=== PATIENT | female | born 1980 | race Caucasian/White ===

== ENCOUNTER 2018-09-22 16:14 | Emergency (ER) | payer BC ==
[2018-09-22 16:24] VITALS: BP 103/67; PULSE 64; TEMP 97.6; BMI 17.6
--- NOTE | 2018-09-22 17:29 | PDOC ---
Documentation entered by Geovanna Cook SCRIBE, acting as scribe for Sim Skaggs MD. iSm Skaggs MD: This documentation has been prepared by the Joey garcia Aiswarya, SCRIBE, under my direction and personally reviewed by me in its entirety. I confirm that the documentation accurately reflects all work, treatment, procedures, and medical decision making performed by me. History of Present Illness - General Chief Complaint: Laceration Stated Complaint: LEFT HAND LACERATION Time Seen by Provider: 09/22/18 16:20 History Source: Patient Exam Limitations: No Limitations - History of Present Illness Initial Comments: 09/22/18 17:21 The patient is a 38 year old female, with no significant PMH, who presents to the emergency department with a left hand laceration that occurred today. The patient states she was taking the pit of a avocado when she accidently slit her left hand between the 1st and 2nd digit with the knife. She reports mild bleeding and pain. The patient last tetanus shot was January with her . Denies any numbness/weakness/tingling. Denies any other deformity. Allergies: NKDA Past surgical history: None reported Social history: None reported PCP: None reported Past History - Past Medical History Allergies/Adverse Reactions: Allergies Allergy/AdvReac Type Severity Reaction Status Date / Time No Known Allergies Allergy Verified 09/22/18 16:15 Home Medications: Ambulatory Orders Control 1 tab PO DAILY 09/22/18 Ranitidine [Zantac -] 150 mg PO DAILY 09/22/18 Sertraline HCl [Zoloft] 150 mg PO DAILY 09/22/18 Review of Systems - Review of Systems Able to Perform ROS?: Yes Comments:: 09/22/18 17:22 skin:+left hand laceration neurological: denies headache, numbness, focal weakness, hematologic: denies anemia, easy bruising, easy bleeding *Physical Exam - Vital Signs Last Vital Signs Temp Pulse Resp BP Pulse Ox 97.6 F 64 20 103/67 99 09/22/18 16:14 09/22/18 16:14 09/22/18 16:14 09/22/18 16:14 09/22/18 16:14 - Physical Exam Comments: 09/22/18 17:23 GENERAL: The patient is awake, alert, and fully oriented, Nontoxic- in no acute distress. SKIN: +Left hand between the 1st and 2nd digit. measuring 1cm. no fb or visible structures appreciated, no active bleeding. sensation intact. motor intact and tested independently at each joint in 1st and 2nd digit in flexion/extension Procedures - Consent Consent obtained: Verbal - Laceration/Wound Repair Left Hand Wound Length: to 2.5 cm Wound Explored: clean Wound's Depth, Shape: superficial Irrigated w/ Saline: Yes Anesthesia: 1% Lidocaine Amount of Anesthetic (ccs): 5 Wound Debrided: minimal Wound Repaired With: Sutures Suture Size/Type: 5:0 Number of Sutures: 2 Layer Closure: No Sterile Dressing Applied: Yes Medical Decision Making - Medical Decision Making 09/22/18 17:26 38y F presenting with laceration to L hand in webbing between 1st and 2nd digits. neurovascularly intact. no fb on visual inspection. irrigated with 250cc of NS. closed with 2x 5.0 nylon sutures with good approximation. bacitracin and bandage applied tetanus UTD. return precautions were discussed I discussed the physical exam findings, ancillary test results and final diagnoses with the patient. I answered all of the patient's questions. The patient was satisfied with the care received and felt comfortable with the discharge plan and treatment plan. The patient will call their primary care physician within 24 hours to arrange follow-up and will return to the Emergency Department with any new, persistent or worsening symptoms. *DC/Admit/Observation/Transfer Diagnosis at time of Disposition: Laceration of hand Qualifiers: Encounter type: initial encounter Foreign body presence: without foreign body Laterality: left Qualified Code(s): S61.412A - Laceration without foreign body of left hand, initial encounter - Discharge Dispostion Disposition: HOME Condition at time of disposition: Improved Decision to Admit order: No - Referrals - Patient Instructions Printed Discharge Instructions: DI for Laceration Repair Additional Instructions: Return to the emergency department immediately with ANY new, persistent or worsening symptoms including any redness, bleeding, purulent discharge, swelling or other concerns. Keep the area clean and dry for 48 hours. Afterwards he may clean gently with soap and water. Apply bacitracin twice a day. Keep the area away from the sun for the next 9 months, please use sunscreen and wear a hat if you need to be in the sun to improve appearance of the scar. Return in 10-14 days for suture removal. You MUST call and follow up with your doctor tomorrow for further evaluation of your symptoms. Results were discussed with you. Please make sure your doctor reviews the results of your emergency evaluation. Print Language: YORUBA - Post Discharge Activity
== END 2018-09-22 17:33 | disposition home or self-care (01) ==
LOC: FER 16:14
PROC: 0HQGXZZ Repair Left Hand Skin, External Approach (ICD-10-PCS; principal; 2018-09-22)
DX: S61.412A Laceration without foreign body of left hand, initial encounter (principal); W26.0XXA Contact with knife, initial encounter; Y93.G1 Activity, food preparation and clean up; Y92.9 Unspecified place or not applicable
CPT/HCPCS: 99283-25

== ENCOUNTER 2018-10-05 09:02 | Emergency (ER) | payer BC ==
--- NOTE | 2018-10-05 09:06 | PDOC ---
Suture Removal/Wound Check HPI - History of Present Illness Chief Complaint: Suture/Staple Removal(Here) Stated Complaint: SUTURE REMOVAL Time Seen by Provider: 10/05/18 09:05 History Source: Yes: Patient Exam Limitations: Yes: No Limitations Treated at: [facility] ED Date of Last ED visit: 09/22/18 - Previous ED Treatment Type of procedure performed on last visit: Yes: Laceration Repair - Onset of Previous Treatment Comment:: 38 yo F s/p lac repair on 09/22 after cutting her hand while cooking. One of the two sutures fell out prior to today, the other remains in place. No redness, no drainage. Past History - Past Medical History Allergies/Adverse Reactions: Allergies Allergy/AdvReac Type Severity Reaction Status Date / Time No Known Allergies Allergy Verified 09/22/18 16:15 Home Medications: Ambulatory Orders Control 1 tab PO DAILY 09/22/18 Ranitidine [Zantac -] 150 mg PO DAILY 09/22/18 Sertraline HCl [Zoloft] 150 mg PO DAILY 09/22/18 COPD: No - Immunization History Immunization Up to Date: Yes - Suicide/Smoking/Psychosocial Hx Smoking History: Never smoked Have you smoked in the past 12 months: No Hx Alcohol Use: Yes (1 WINE DAILY) Drug/Substance Use Hx: No Suture Removal/Wound Check PE - Physical Exam Laceration/Wound Check Symptoms: reports: Resolved Location of Laceration/Wound: left: Hand (webspace between thumb and forefinger) Pain Radiation: None Comments: GENERAL: Awake, alert, and fully oriented, in no acute distress SKIN: Warm, Dry, normal turgor, no rashes. Healing laceration with [address] to webspace between L 1st and 2nd finger. *Review of Systems - Review of Systems Able to Perform ROS?: Yes Constitutional: No: Symptoms Reported Musculoskeletal: No: Symptoms Reported Integumentary: No: Symptoms Reported Neurological: No: Symptoms reported Procedures - Additional Procedures Progress: 10/05/18 09:10 1 suture removed without complication. Steri-strip placed. *DC/Admit/Observation/Transfer Diagnosis at time of Disposition: Visit for suture removal - Discharge Dispostion Disposition: HOME Condition at time of disposition: Stable Decision to Admit order: No - Referrals - Patient Instructions Printed Discharge Instructions: DI for Suture Removal - Post Discharge Activity
[2018-10-05 09:09] VITALS: BP 107/54; PULSE 80; TEMP 98.5; BMI 17.5
== END 2018-10-05 09:10 | disposition home or self-care (01) ==
LOC: FER 09:02
DX: Z48.02 Encounter for removal of sutures (principal)
CPT/HCPCS: 99281-25